=== PATIENT | female | born 1990 | race African-American/Black ===

== ENCOUNTER 2016-11-19 17:35 | Emergency (ER) | payer SELFPAY ==
[~2016-11-19 17:35] MED LIST: P20 PO; VENTOLIN HFA INH; [UNRECOGNIZED DRUG - OTHER] PO
== END 2016-11-19 17:50 | disposition home or self-care (01) ==
LOC: ER 17:35
DX: J45.909 Unspecified asthma, uncomplicated (principal); Z87.01 Personal history of pneumonia (recurrent); F17.200 Nicotine dependence, unspecified, uncomplicated; Z79.899 Other long term (current) drug therapy
CPT/HCPCS: 71020; 93005; 94640; 99285; A9270-GY

== ENCOUNTER 2016-12-04 13:14 | Observation (INO) | payer OTHER ==
--- NOTE | ~2016-12-04 | CN ---
Consultation Report [facility] [address] [place]. [address] NAME: EVA OCHOA : 86 STATUS : ADM [place] PAT#: [id number] AGE: 26 ADM/REG DATE : 12/04/16 MR#: [id number] REPORT SERV DATE: 12/06/16 DICTATED BY: MICHEL PAGAN DATE: 12/05/16 REPORT STATUS : Draft TRANSCRIBED BY: MODL DATE: 12/05/[address] RUBIN AND DR. KAUFFMAN: THANK YOU FOR REQUESTING MY OPINION REGARDING EVALUATION AND MANAGEMENT OF EVA OCHOA'S ASTHMA EXACERBATION. MS. OCHOA IS A PLEASANT, 26-YEAR-OLD FEMALE WITH A SIGNIFICANT PAST MEDICAL HISTORY OF ASTHMA SINCE CHILD AND A THREE-PACK YEAR HISTORY, CURRENTLY ACTIVELY SMOKING, WHO [facility] WITH SEVERAL DAYS OF WORSENING SHORTNESS OF BREATH AND DYSPNEA ON EXERTION. SHE CHARACTERIZES HER SYMPTOMS MODERATE TO SEVERE ON ADMISSION AND SIGNIFICANTLY IMPROVED, NOW CURRENTLY MILD. SHE HAS ASSOCIATED WHEEZING AND NONPRODUCTIVE COUGH AND CHEST TIGHTNESS. SHE FIRMLY DENIES ANY FEVERS, CHILLS, NIGHT SWEATS, NAUSEA, VOMITING, DIARRHEA, OR CONSTIPATION. SHE DENIES ANY BILATERAL LOWER LEG SWELLING OR ORTHOPNEA. DATE OF CONSULTATION: 12/05/2016 REVIEW OF SYSTEMS: A detailed 14-point review of systems is completed. Pertinent positives and negatives are listed above. PAST MEDICAL HISTORY: 1. Asthma. 2. Active tobacco abuse. PAST SURGICAL HISTORY: None. SOCIAL HISTORY: The patient smokes half pack per day for the past three years for a total of one and a half pack years. She denies any significant alcohol or drug abuse. She is single and lives with her kids. FAMILY HISTORY: Hypertension, COPD, cancer, and diabetes. ALLERGIES: NO KNOWN DRUG ALLERGIES. HOME MEDICATIONS: Reviewed and located in the paper chart. PHYSICAL EXAMINATION: VITAL SIGNS: Afebrile. T current of 97.7, pulse 110, respiratory rate 20, room air 98%, and blood pressure 155/76. GENERAL: Pleasant, female, obese. HEENT: Normocephalic and atraumatic. Pupils are equal, round, and reactive to light and accommodation. Posterior oropharynx is crowded but clear. NECK: No JVD. No LAD. Thick neck. CARDIOVASCULAR: Regular rate and rhythm. S1 and S2 present. Consultation Report [facility] [address] [place]. [address] NAME: EVA OCHOA : 86 STATUS : ADM [place] PAT#: [id number] AGE: 26 ADM/REG DATE : 12/04/16 MR#: [id number] REPORT SERV DATE: 12/06/16 DICTATED BY: MICHEL PAGAN DATE: 12/05/16 REPORT STATUS : Draft TRANSCRIBED BY: MODL DATE: 12/05/16 LUNGS: Clear to auscultation bilaterally. No obvious end-expiratory wheezes but slightly diminished. ABDOMEN: Protuberant, nontender, nondistended, soft, positive bowel sounds. EXTREMITIES: No clubbing, cyanosis, or edema. SKIN: Without rashes, lesions, or ulcers. PSYCHIATRIC: Alert and oriented x3. Appropriate mood and affect. Appropriate insight and judgment. NEUROLOGIC: 5/5 strength in upper and lower extremities. Cranial nerves 2 through 12 are intact. Gait not tested. DTRs not performed. LABORATORY DATA: Normal CBC. Differential demonstrates slight peripheral blood eosinophilia, negative D-dimer, negative procalcitonin, creatinine is normal. Negative troponins x3. IMAGING: Chest x-ray on 12/05/2016, shows shallow inspiration with mild central venous and congestion, which may be but just vascular crowding due to poor inflation. ASSESSMENT AND PLAN: Ms Eva Ochoa is a pleasant, 26-year-old female with a significant past medical history of asthma, who presents with shortness of breath, dyspnea on exertion, wheezing, and nonproductive cough. The patient is treated with Solu-Medrol 60 mg IV q.6h, doxycycline, and bronchodilators with significant improvement in her shortness of breath, now characterized as mild. My impression is Ms Eva Ochoa has asthma exacerbation. Her chest tightness is likely due to her asthma. She had a negative D-dimer and negative cardiac enzymes. RECOMMENDATIONS: A summary of my recommendations are as follows: 1. Transition to p.o. prednisone taper as directed. 2. Home O2 evaluation on discharge. 3. If the patient continues to do well, she can be discharged tomorrow. Thank you for allowing me to participate in Ms Eva Ochoa's care. Further recommendations to follow pending clinical course. ROBERTA/MODL Michel Pagan M.D. / [id number] CC: Narda Kauffman M.D.
--- NOTE | ~2016-12-04 | HP ---
History And Physical [id number] [place]. [address] NAME: LOLA OCHOA : 86 STATUS : ADM [place] PAT#: [id number] AGE: 26 ADM/REG DATE : 12/04/16 MR#: [id number] REPORT SERV DATE: 12/05/16 DICTATED BY: LORNA GUZMAN DATE: 12/04/16 REPORT STATUS : Draft TRANSCRIBED BY: DAKOTA DATE: 12/04/16 DATE OF ADMISSION: 12/04/2016 CHIEF COMPLAINT: Increasing shortness of breath and wheezing for couple of days. HISTORY OF PRESENT ILLNESS: This is a very pleasant, 26 years old female. She has a history of asthma. She takes only intermittent inhalers and nebulizer treatment. She has no primary care provider, diagnosed with asthma since childhood as well as a history of tobacco use, presenting today to [facility] of couple of days, increasing shortness of breath, wheezing and nonproductive cough, retrosternal chest pain exacerbated by cough. No fever, no chills. Some myalgias, arthralgia, intermittent headache. No nausea or vomiting. No abdominal pain. No PND or orthopnea. No diarrhea, no constipation. No other complaints. The patient has been evaluated in the emergency room and after couple of breathing treatments, she continued to feel short of breath and wheezing and as a result, Hospitalist Service has been asked for admission, further evaluation, and treatment again. PAST MEDICAL HISTORY: Significant for asthma since childhood. PAST SURGICAL HISTORY: None. SOCIAL HISTORY: She is a smoker. She says she smokes left less than half a pack a day for three years. Occasional alcohol. No IV drugs. She is single, lives with her family. FAMILY HISTORY: Significant for hypertension, COPD, diabetes, and cancer. CURRENT MEDICATIONS: At home include albuterol inhaler and nebulizers. REVIEW OF SYSTEMS: A 14-point review of systems has been obtained, and pertinent positive has been listed into the history of present illness. Otherwise, negative except those underlying above. PHYSICAL EXAMINATION: VITAL SIGNS: The patient currently is afebrile. Blood pressure is 133/82, heart rate 105, respiratory rate 16, and saturating 95% on room air on arrival. GENERAL: She is a very pleasant, well-developed, well-nourished female, in mild to moderate distress, able though to speak in full sentences. Alert and oriented x3. Nonfocal. Following all her commands appropriately. HEENT: Shows pupils equal, round, reactive to light. Extraocular movements intact. No JVD. No lymphadenopathy. No thyromegaly appreciated. CHEST: Eval shows bilateral air entry. Bilateral inspiratory expiratory wheezes. No crackles. Few rhonchi. No crackles appreciated. CARDIOVASCULAR: Regular rate and rhythm. Mildly tachycardic. S1, S2 positive. No S3, no S4. No murmurs, rubs, or gallops appreciated. ABDOMEN: Soft, nontender. No guarding. No rebound. EXTREMITIES: No clubbing, cyanosis, or edema. NEUROLOGIC: She is alert and oriented x3. Nonfocal. She follows all her commands History And Physical [address] [address] NAME: LOLA OCHOA : 86 STATUS : ADM [place] PAT#: [id number] AGE: 26 ADM/REG DATE : 12/04/16 MR#: [id number] REPORT SERV DATE: 12/05/16 DICTATED BY: LORNA GUZMAN DATE: 12/04/16 REPORT STATUS : Draft TRANSCRIBED BY: DAKOTA DATE: 12/04/16 appropriately. LABORATORY DATA: Labs from today include sodium of 140, potassium 3.4, chloride is 106, CO2 of 28, BUN 9, creatinine 0.81, glucose is 121. Troponin I is less than 0.02. White count is 7.3, hemoglobin 14, hematocrit 40.7, and platelets are 282. Her D-dimer is less than 0.27, INR is 1.1. Her chest x-ray, PA and lateral, performed in the emergency room show normal chest x-ray. EKG shows mild sinus tachycardia. ASSESSMENT AND PLAN: This is a very pleasant, 26 years old with: 1. Asthma exacerbation. 2. Hypokalemia. The patient is going to be admitted to Hospitalist Service for observation, place her on oxygen. Place her on Solu-Medrol, doxycycline, DuoNeb, Mucinex. Also tobacco cessation education has been provided to the patient as well as nitroglycerin paste. 3. Hypokalemia. We will replace her electrolytes per protocol. We will provide reasonable pain and nausea control as well as GI and DVT prophylaxis. That has been discussed extensively with the patient. All the questions have been answered in full. Further workup and recommendation pending above. It is worthwhile to note that the patient is going to be followed by the hospitalist service. GENARO/DAKOTA Lorna Guzman M.D. / [id number] CC: Narda Wheeler M.D.
--- NOTE | ~2016-12-04 | DS ---
Discharge Summary [address] [place]. [address] NAME: LOLA OCHOA : 86 STATUS : DIS [place] PAT#: [id number] AGE: 26 ADM/REG DATE : 12/04/16 MR#: [id number] REPORT SERV DATE: 12/06/16 DICTATED BY: CHERELLE KAUFFMAN DATE: 12/06/16 REPORT STATUS : Draft TRANSCRIBED BY: MODL DATE: 12/06/16 ADMISSION DATE: 12/04/2016 DISCHARGE DATE: 12/06/2016 MATH TUTOR: 1. Dr. Michel Noel. 2. Dr. Martinez. DIAGNOSES ON ADMISSION: 1. Asthma exacerbation. 2. Hypokalemia. 3. Tobacco abuse. DIAGNOSES ON DISCHARGE: 1. Asthma exacerbation, improved. 2. Hypokalemia, resolved. 3. The patient needs to stop smoking. CONSULTANTS ON THE CASE: Dr. Noel, editorial director. HISTORY OF PRESENT ILLNESS: The patient is a very pleasant 26-year-old female, who was admitted by Dr. Lorna Guzman on 12/04/2016 with increasing shortness of breath and was found to have asthma exacerbation. For the details, see history of present illness dictated by Dr. Guzman. HOSPITAL COURSE: Briefly, the patient was started on intravenous steroids and doxycycline. She had a chest x-ray done on admission, and the chest x-ray showed no evidence of pneumonia and no evidence of consolidation. The patient had wheezing on admission, which has improved. During treatment yesterday, she was seen by editorial director, Dr. Noel, who changed her to oral prednisone and she is doing well on oral prednisone. Her chest tightness improved, cough improved, Dr. Noel, editorial director, saw the patient today and he recommended the patient to be discharged today on tapering course of prednisone 40 mg daily for five days, then 30 mg daily for five days, then 20 mg daily for five days, then 10 mg daily for five days, and then to stop. He recommended Symbicort 160/4.5 twice a day and doxycycline 100 mg p.o. b.i.d. for five days. I wrote prescription for albuterol MDI one to two puffs q.6 hours p.r.n. as needed for shortness of breath. The patient also was written prescription for nicotine patch 14 mg daily for six weeks. I then gave the patient a note for work that she was hospitalized at [facility] from 12/04/2016 to 12/06/2016, and the patient is okay to start working on 12/12/2016. The patient needs also to a find a primary care physician to follow up with him. I asked outsole caser to help with this and her mother also is looking for a primary care physician in the [facility] for her daughter as well as Dr. Noel recommended the patient to follow up with editorial director, Dr. Martinez. The patient was discharged in a stable condition. I spent 45 minutes on discharge. Discharge Summary [address] [address] NAME: LOLA OCHOA : 86 STATUS : DIS [place] PAT#: [id number] AGE: 26 ADM/REG DATE : 12/04/16 MR#: [id number] REPORT SERV DATE: 12/06/16 DICTATED BY: CHERELLE KAUFFMAN DATE: 12/06/16 REPORT STATUS : Draft TRANSCRIBED BY: DAKOTA DATE: 12/06/16 DICTATED BY: Bj Tavera/DAKOTA Cherelle Kauffman M.D. / [id number] CC: Cherelle Kauffman M.D. NO PCP Michel Noel M.D.
[2016-12-04 14:13] LABS: BASOPHILS 0.4 %; BASOPHILS ABSOLUTE 0.03 10/3/uL (0.0-0.16); EOSINOPHILS 7.9 %; EOSINOPHILS ABSOLUTE 0.58 10/3/uL (0.0-0.53); HEMATOCRIT 40.7 % (36.0-48.0); IMMATURE GRANULOCYTES 0.1 %; IMMATURE GRANULOCYTES ABSOLUTE 0.01 10/3/uL (0.0-0.11); LYMPHOCYTES 39.5 %; LYMPHOCYTES ABSOLUTE 2.89 10/3/uL (0.67-4.30); MEAN CORPUS HGB CONC 34.4 g/dL (32.0-36.0); MEAN CORPUSCULAR HEMOGLOB 30.4 pg (26.0-34.0); MEAN CORPUSCULAR VOLUME 88.3 fL (80-100); MEAN PLATELET VOLUME 9.9 fL (9.2-13.0); MONOCYTES ABSOLUTE 0.44 10/3/uL (0.21-1.20); NEUTROPHILS 46.1 %; NEUTROPHILS ABSOLUTE 3.37 10/3/uL (2.02-8.40); PLATELET COUNT 282 10/3/uL (150-400); RED CELL COUNT 4.61 10/6/uL (4.0-5.6); WHITE BLOOD CELLS 7.3 10/3/uL (4.5-10.5)
[2016-12-04 14:14] LABS: ER CBC TAT 0 Hrs 05 MinsNP; MANUAL DIFF NO %
[2016-12-04 14:20] LABS: INTERNATIONAL NORMAL RATI 1.1 UNITS (-); PARTIAL THROMBO TIME 27.2 SEC (22.5-37.2); PROTIME (NOT ORD) 13.8 SEC (12.0-14.5)
[2016-12-04 14:29] LABS: BUN (BLOOD UREA NITROGEN) 9 MG/DL (6-23); CALCIUM, SERUM 9.1 MG/DL (8.5-10.4); CHEST PAIN PROFILE TAT 0 Hrs 21 Mins; CHLORIDE, SERUM 106 MMOL/L (96-112); CO2 (CARBON DIOXIDE) 28 MMOL/L (24-34); CREATININE 0.81 MG/DL (0.55-1.02); GFR AFRICAN AMERICAN 115 ML/MIN (>=60); GFR NON AFRICAN AMERICAN 99 ML/MIN (>=60); GLUCOSE, SERUM 121 MG/DL (60-99); POTASSIUM, SERUM 3.4 MMOL/L (3.5-5.3); SODIUM, SERUM 140 MMOL/L (135-148); TROPONIN I <0.02 NG/ML (<0.05)
[2016-12-04] MEDS ORDERED: ALBUTEROL0.083 % INH (22:37)
[2016-12-04] MEDS ORDERED: PROAIR HFA INH (22:37)
[2016-12-05 02:02] LABS: TROPONIN I <0.02 NG/ML (<0.05)
[2016-12-05 03:37] LABS: PHOSPHORUS, SERUM 1.5 MG/DL (2.5-4.5)
[2016-12-05 03:48] LABS: ASCORBIC ACID (UR NOT ORDER) NEG (NEG); BILIRUBIN, URINE NEGATIVE (NEG); KETONE, URINE TRACE MG/DL (NEG); LEUKOCYTE ESTERASE(NOT OR TRACE (NEG); WBC (NOT ORDERED) (RFLEX) 5 (0-5)
[2016-12-05 04:23] LABS: PROCALCITONIN <0.05 ng/mL (<0.5)
[2016-12-05 05:07] LABS: BASOPHILS 0.1 %; BASOPHILS ABSOLUTE 0.01 10/3/uL (0.0-0.16); EOSINOPHILS 0.1 %; EOSINOPHILS ABSOLUTE 0.01 10/3/uL (0.0-0.53); HEMOGLOBIN 15.8 g/dL (12.0-16.0); IMMATURE GRANULOCYTES 0.4 %; IMMATURE GRANULOCYTES ABSOLUTE 0.04 10/3/uL (0.0-0.11); LYMPHOCYTES ABSOLUTE 0.91 10/3/uL (0.67-4.30); MEAN CORPUSCULAR HEMOGLOB 31.2 pg (26.0-34.0); MEAN CORPUSCULAR VOLUME 89.2 fL (80-100); MEAN PLATELET VOLUME 9.8 fL (9.2-13.0); MONOCYTES ABSOLUTE 0.18 10/3/uL (0.21-1.20); NEUTROPHILS 87.4 %; NEUTROPHILS ABSOLUTE 7.97 10/3/uL (2.02-8.40); PLATELET COUNT 315 10/3/uL (150-400); RBC DISTRIBUTION WIDTH 12.8 % (12.0-16.0); RED CELL COUNT 5.07 10/6/uL (4.0-5.6); WHITE BLOOD CELLS 9.1 10/3/uL (4.5-10.5)
[2016-12-05 05:08] LABS: HEMATOCRIT 45.2 % (36.0-48.0); MANUAL DIFF NO %
[2016-12-05 05:23] LABS: A/G RATIO 0.8 (0.7-1.9); ALBUMIN 3.7 G/DL (3.5-5.0); ALKALINE PHOSPHATASE 148 U/L (45-117); BUN (BLOOD UREA NITROGEN) 9 MG/DL (6-23); CHLORIDE, SERUM 106 MMOL/L (96-112); CREATININE 0.88 MG/DL (0.55-1.02); GFR AFRICAN AMERICAN 104 ML/MIN (>=60); GFR NON AFRICAN AMERICAN 89 ML/MIN (>=60); SGOT(AST) 13 U/L (5-40); SGPT(ALT) 26 U/L (5-65); SODIUM, SERUM 136 MMOL/L (135-148); TOTAL BILIRUBIN 0.3 MG/DL (0-1.2); TOTAL PROTEIN 8.3 G/DL (6.0-8.5)
[2016-12-05 05:26] LABS: CALCIUM, SERUM 10.2 MG/DL (8.5-10.4); CO2 (CARBON DIOXIDE) 21 MMOL/L (24-34); GLOBULIN 4.6 G/DL (2.5-4.1); GLUCOSE, SERUM 218 MG/DL (60-99); POTASSIUM, SERUM 4.8 MMOL/L (3.5-5.3)
[2016-12-05 05:57] LABS: B NATRIURETIC PEPTIDE (BNP) 10.8 PG/ML (< 100.0)
[2016-12-06 04:47] LABS: BUN (BLOOD UREA NITROGEN) 10 MG/DL (6-23); CALCIUM, SERUM 9.4 MG/DL (8.5-10.4); CHLORIDE, SERUM 105 MMOL/L (96-112); CO2 (CARBON DIOXIDE) 24 MMOL/L (24-34); CREATININE 0.86 MG/DL (0.55-1.02); GFR AFRICAN AMERICAN 107 ML/MIN (>=60); GFR NON AFRICAN AMERICAN 92 ML/MIN (>=60); GLUCOSE, SERUM 192 MG/DL (60-99); POTASSIUM, SERUM 4.2 MMOL/L (3.5-5.3); SODIUM, SERUM 137 MMOL/L (135-148)
[2016-12-06 04:48] LABS: PHOSPHORUS, SERUM 3.6 MG/DL (2.5-4.5)
[2016-12-06] MEDS ORDERED: DORYX100 MG PO (16:09)
[2016-12-06] MEDS ORDERED: MUCINEX600 MG PO (16:10)
[2016-12-06] MEDS ORDERED: HABIT14 TOP (16:11)
[2016-12-06] MEDS ORDERED: SYMBICORT 160/41 INH INH (16:12)
[2016-12-06] MEDS ORDERED: STERAPRED DS10 MG (16:13)
== END 2016-12-06 16:44 | disposition home or self-care (01) ==
LOC: ER 13:14 → CDU1 23:20
PROVIDERS: Emergency Medicine; Hospitalist
DX: J45.901 Unspecified asthma with (acute) exacerbation (principal); E87.6 Hypokalemia; F17.210 Nicotine dependence, cigarettes, uncomplicated
CPT/HCPCS: 71010; 71020; 80048; 80053; 81001; 82962; 83036; 83605; 83615; 83735; 83880; 84100; 84145; 84443; 84484; 84703; 85025; 85379; 85610; 85730; 93005; 94640; 96372; 96374; 96375; 96376; 99291; A9270-GY; G0378; J2930